=== PATIENT | female | born 1960 | race Caucasian/White ===

== ENCOUNTER 2018-05-11 01:31 | Emergency (ER) | payer MEDICARE, OTHER ==
[~2018-05-11] VITALS: Ht 167.6 cm; Wt 49.9 kg
[~2018-05-11 01:31] MED LIST: ALBIPROI INH; ALBU90OI6 INH; AMLO5 PO; ASPI81CH; ASPI81CH PO; ASPI81EC PO; ATEN25 PO; CARV6.25 PO; CLON.5 PO; CLOP75; CLOP75 PO; COLESTEROL MED; COMBIVENT RESPIM4 GM INH; CRUTCH4 USE; CYCL10 PO; DIPH50; DIPH50 PO; FAMO40; FELO5CR; FELO5CR PO; FURO20 PO; FURO40; FURO40 PO; HYDACE10 PO; HYDACE10B PO; HYDACE5 PO; HYDACE7.5 PO; ISOD40ER PO; ISOMON60ER PO; LISI5 PO; METO50ER; MORP15ER PO; NITRSPRAY SL; Naprosyn500 MG PO; OMEP10ER; OMEP20ER PO; ONDA4ODT MM; OXYACE5T PO; PRAZ1 PO; PROM25 PO; Percocet 5-3251 EACH PO; RISE35; ROSU10TA; ROSU10TA PO; TRIE10TC TOP; Ventolin5 MG/1 ML INH; Zofran Odt4 MG SL; marijuana PO
[2018-05-11] MEDS ORDERED: Lasix20 MG PO (06:18)
== END 2018-05-11 06:23 | disposition home or self-care (01) ==
LOC: ER 01:31
DX: R60.0 Localized edema (principal); Z59.0 Homelessness; F17.210 Nicotine dependence, cigarettes, uncomplicated; Z91.041 Radiographic dye allergy status; Z88.5 Allergy status to narcotic agent; Z88.8 Allergy status to other drugs, medicaments and biological substances; Z79.899 Other long term (current) drug therapy; Z79.01 Long term (current) use of anticoagulants
CPT/HCPCS: 99283

== ENCOUNTER 2020-06-06 10:37 | Day surgery (SDC) | payer OTHER ==
[~2020-06-06] VITALS: Ht 154.9 cm; Wt 63.2 kg
[~2020-06-06 10:37] MED LIST changes: +Lasix20 MG PO
--- NOTE | 2020-06-06 12:17 | NUR ---
06/06/20 1217 Ian Dsouza ISOVUE [id number] USED.
== END 2020-06-06 12:40 | disposition home or self-care (01) ==
LOC: ORSCSDS 10:37
PROVIDERS: Anesthesiology
PROC: 3E0R33Z Introduction of Anti-inflammatory into Spinal Canal, Percutaneous Approach (ICD-10-PCS; principal; 2020-06-06 12:00)
DX: M50.122 Cervical disc disorder at C5-C6 level with radiculopathy (principal); Z79.82 Long term (current) use of aspirin; I10 Essential (primary) hypertension; E78.00 Pure hypercholesterolemia, unspecified; J44.9 Chronic obstructive pulmonary disease, unspecified; F17.210 Nicotine dependence, cigarettes, uncomplicated; Z79.899 Other long term (current) drug therapy
CPT/HCPCS: J1040; J1100; J1885; J2250; J2405; J3010